=== PATIENT | male | born 1960 | race Caucasian/White ===

== ENCOUNTER 2018-08-07 08:00 | Outpatient (RCR) | payer OTHER, SELFPAY ==
--- NOTE | 2018-07-09 09:21 | HP.PTEVAL_ITS ---
Patient's Visit Information MATIAS BAUER is a 58 year old M referred to Physical Therapy by MANUEL ALMANZAR with a diagnosis of L shoulder pain. Date of Evaluation: 07/09/18 Physical Therapist: Mohan Daugheryt DPT - Visit Plan Frequency: 2x /Week Duration: 4-6 Weeks Plan: Start with AAROM for endrange pain free movement. Add in scapular stability/strengthening as tolerated. Progress RTC strenthening in painfree ranges. Add in inferior glides throughout flexion and abduction. May use modalities if needed to reduce symptoms. - Subjective Findings: Pt. is here today for his initial evaluation with diagnosis of L shoulder pain. Pt. reports increased pain over the past year or so. He reports no mechanism of injury. Pt. increased pain with lifting his arm, lying on his arm, UB dressing, light lifting, ER rotating his arm. Pt. reports decreased pain with resting. Pt. does having increased pain at night. Pt. does reprots increased N/T in hand at times. Pt. 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 - Pain L shoulder Pain Intensity (Out of 10): 5 - Objective POSTURE: Pt. has normal posture. Normal cervical spine. PALPATION: Pt. has increased tenderness at anterior portion of subacromial space and into bicipital groove. Pt. has no pain at scapular region. NEURO: Pt. has normal sensation throughout bilateral UEs. Pt. - Special Tests L Shoulder Drop Sign - IS Test: Negative L Shoulder Empty Can - SS: Positive L Shoulder Belly Press - SupScap: Negative L Shoulder Neer - Impingement: Positive L Shoulder Finn Jewel - Impingement: Positive L Shoulder Biceps Load Test - Labrum: Negative L Shoulder Speeds Test - Labrum/Biceps: Negative - Goals Goal 1:: Pt. to be I with HEP. Goal Time Frame: 4-6 Weeks Goal 2:: Pt. to sleep throughout the night without increase in symptoms. Goal Time Frame: 4-6 Weeks Goal 3:: Pt. to have full ROM of L shoulder without increase in symptoms. Goal Time Frame: 4-6 Weeks Goal 4:: Pt. to have increased L shoulder strength by 1/2 grade throughotu effected musculature. Goal Time Frame: 4-6 Weeks Goal 5:: Pt. to resume all recreational activities without increase in symptoms. Goal Time Frame: 4-6 Weeks - Rehabilitation Potential Physical Therapy Diagnosis: Pt. has signs and symptoms consistent with L shoulder pain. Pt. has positive signs of end range impingment testing, but has pain with range muscle testing, greatest with external rotation. Pt. does have marked weakness with external rotation as well. It is hard to rule out partial tear of supraspinatus, as he has marked painfull mobility and weakness. Pt. would benefit from PT to increase painfree ROM and RTC stability/strength. Rehabilitation Potential: Good - Anticipated Interventions Patient/Client Instruction: Educate patient on: Condition, Plan of Care, Risk Factors, Benefits of Fitness Program For the Purpose of:: To improve health and function, To foster healthy habits, To improve decision making, To facilitate caregiver knowledge, To improve self management, To prevent re-injury, To improve ability to perform tasks related to life management, To improve tolerance to ADL's Therapeutic Exercise to Include: Strength training, Power training, Postural training, Flexibilty training, Scapular Strength/Stabilization For the Purpose of:: To decrease pain, To increase ROM, To improve nutrient delivery to tissue, To improve muscle performance and motor function, To improve health of tissue, To decrease soft tissue restriction, To increase flexibility /ROM Manual Therapy Techniques to Include: Mobilization, Passive ROM, Functional dry needling For the Purpose of:: To decrease pain, To increase ROM, To improve nutrient delivery to tissue, To increase oxygenation perfusion, To improve muscle performance and motor function, To improve health of tissue, To decrease soft tissue restriction, To increase flexibility/ROM IF ES: Yes Cryotherapy (ice pack, ice massage): Yes Thermo therapy (hot pack): Yes Ultrasound (thermal/non thermal): Yes For the Purpose of:: To decrease pain, To decrease swelling/inflammation, To increase ROM, To improve nutrient delivery to tissue, To improve health of tissue, To decrease soft tissue restriction, To increase flexibility/ROM Thank you for the opportunity to evaluate your patient. For Medicare and Medicare HMO plans, please review the plan of care and approve it. It will need to be FAXED BACK to us at [phone] for Medicare purposes. For Medicare only, by signing this I certify the plan of care. Please let me know if there are questions or concerns regarding this plan of care. Physician Signature: Date:
--- NOTE | 2018-08-07 12:22 | HP.PTREVAL ---
MANUEL ALMANZAR, It has been my pleasure to treat MATIAS BAUER over the last 7 visits for L shoulder pain. Please see the progress note below for an update on the physical therapy plan of care! Subjective: Pt. reports I still have pain in my shoulder, I was better for about 1 day after last time. Pt. reports having 5/10 pain currently. Pt. reports overall only about 40% better. He is conserned about the days when his pain in intense. Pt. reports being HEP compliant. Objective/Function: Pt. continues to have increased pain with overhead motions. Pt. has pain at anterior aspect of R shoulder. Pt. has signs of biceps issues, but again does not have marked weakness. Pt. has HEP for RTC strengthening in painfree ranges and AAROM to perserve ROM. Pt. is to complete daily. Plan Plan: I recommended that the patient follow up with his physician at this point in time, as his symptoms have not changed much for the positive. Pt. consents to this plan. I will leave case open for 3-4 weeks incase patient needs to return. Goals Goal 1:: Pt. to be I with HEP. Goal Time Frame: 4-6 Weeks Goal Progress: Goal Met Goal 2:: Pt. to sleep throughout the night without increase in symptoms. Goal Time Frame: 4-6 Weeks Goal Progress: Not Progressing Goal 3:: Pt. to have full ROM of L shoulder without increase in symptoms. Goal Time Frame: 4-6 Weeks Goal Progress: Progressing Goal 4:: Pt. to have increased L shoulder strength by 1/2 grade throughotu effected musculature. Goal Time Frame: 4-6 Weeks Goal Progress: Progressing Goal 5:: Pt. to resume all recreational activities without increase in symptoms. Goal Time Frame: 4-6 Weeks Goal Progress: Not Progressing Anticipated Interventions Patient/Client Instruction: Educate patient on: Condition, Plan of Care, Risk Factors, Benefits of Fitness Program For the Purpose of:: To improve health and function, To foster healthy habits, To improve decision making, To facilitate caregiver knowledge, To improve self management, To prevent re-injury, To improve ability to perform tasks related to life management, To improve tolerance to ADL's Therapeutic Exercise to Include: Strength training, Power training, Postural training, Flexibilty training, Scapular Strength/Stabilization For the Purpose of:: To decrease pain, To increase ROM, To improve nutrient delivery to tissue, To improve muscle performance and motor function, To improve health of tissue, To decrease soft tissue restriction, To increase flexibility/ROM Manual Therapy Techniques to Include: Mobilization, Passive ROM, Functional dry needling For the Purpose of:: To decrease pain, To increase ROM, To improve nutrient delivery to tissue, To increase oxygenation perfusion, To improve muscle performance and motor function, To improve health of tissue, To decrease soft tissue restriction, To increase flexibility/ROM IF ES: Yes Cryotherapy (ice pack, ice massage): Yes Thermo therapy (hot pack): Yes Ultrasound (thermal/non thermal): Yes For the Purpose of:: To decrease pain, To decrease swelling/inflammation, To increase ROM, To improve nutrient delivery to tissue, To improve health of tissue, To decrease soft tissue restriction, To increase flexibility/ROM Please do not hesitate to contact me at [phone] by phone or if you have questions or concerns regarding this new plan of care! Sincerely, PAL GarcíaT
--- NOTE | 2018-10-12 18:23 | HP.PT.NRP ---
HP - Discharge Summary (1) - Patient Information MATIAS BAUER was seen in my office for initial evaluation on 07/09/18. The following Plan of Care was established for this patient: Initial Frequency: 2x /Week Initial Duration: 4-6 Weeks - Anticipated Interventions Patient/Client Instruction: Educate patient on: Condition, Plan of Care, Risk Factors, Benefits of Fitness Program For the Purpose of:: To improve health and function, To foster healthy habits, To improve decision making, To facilitate caregiver knowledge, To improve self management, To prevent re-injury, To improve ability to perform tasks related to life management, To improve tolerance to ADL's Therapeutic Exercise to Include: Strength training, Power training, Postural training, Flexibilty training, Scapular Strength/Stabilization For the Purpose of:: To decrease pain, To increase ROM, To improve nutrient delivery to tissue, To improve muscle performance and motor function, To improve health of tissue, To decrease soft tissue restriction, To increase flexibility/ROM Manual Therapy Techniques to Include: Mobilization, Passive ROM, Functional dry needling For the Purpose of:: To decrease pain, To increase ROM, To improve nutrient delivery to tissue, To increase oxygenation perfusion, To improve muscle performance and motor function, To improve health of tissue, To decrease soft tissue restriction, To increase flexibility/ROM IF ES: Yes Cryotherapy (ice pack, ice massage): Yes Thermo therapy (hot pack): Yes Ultrasound (thermal/non thermal): Yes For the Purpose of:: To decrease pain, To decrease swelling/inflammation, To increase ROM, To improve nutrient delivery to tissue, To improve health of tissue, To decrease soft tissue restriction, To increase flexibility/ROM This patient was last seen in our office 08/07/18. Pertinent comments regarding their Physical therapy will appear below: Pt. was treated for his L shoulder pain. Pt. was making minimal improvements and was to follow back up with physician then back with PT if needed. Pt. has not been seenin several months and will be DC from PT at this point in time. At this point I will be discontinuing this patient from physical therapy. I would be happy to see this patient again in the future if found appropriate by the physician. Thank you! Mohan Daugherty, ESPERANZA
== END 2018-08-07 19:00 | disposition home or self-care (01) ==
LOC: PT 08:00
DX: M25.512 Pain in left shoulder (principal)
CPT/HCPCS: 97035; 97110; 97161

== ENCOUNTER → 2024-10-27 | Outpatient (CLI) | payer OTHER, SELFPAY ==
[2024-10-27 16:11] LABS: Iron 55 ug/dL (65-175)
[2024-10-29 16:08] LABS: Endomysial Antibody IgA Negative (Negative); Immunoglobulin A 233 mg/dL (61-437); t-Transglutaminase IgA <2 U/mL (0-3)
== END | disposition home or self-care (01) ==
PROVIDERS: Referring Provider Internal Medicine Gastroenterology; Visit Provider Internal Medicine Gastroenterology
DX: D50.9 Iron deficiency anemia, unspecified (principal)
CPT/HCPCS: 36415; 82784; 83516; 83540; 86255